=== PATIENT | male | born 1935 | race Caucasian/White ===

== ENCOUNTER → 2020-06-19 | Outpatient (REF) | payer MEDICARE, OTHER ==
[2020-07-23 10:50] LABS: INR 0.96; PARTIAL THROMBOPLASTIN TIME 31.7 SECONDS (25.0-38.4)
[2020-07-23 11:57] LABS: APPEARANCE, URINE HAZY (CLEAR); BACTERIA, URINE AUTO NEGATIVE (NEGATIVE); BILIRUBIN, URINE AUTO NEGATIVE (NEGATIVE); BLOOD, URINE BLOOD 2+ (NEGATIVE); COLOR, URINE YELLOW (YELLOW); GLUCOSE, URINE (UA) AUTO NEGATIVE (NEGATIVE); KETONE, URINE AUTO NEGATIVE (NEGATIVE); LEUKOCYTE ESTERASE, URINE AUTO TRACE (NEGATIVE); MUCUS, URINE SMALL (NEGATIVE); NITRITE, URINE AUTO NEGATIVE (NEGATIVE); PROTEIN, URINE AUTO NEGATIVE (NEGATIVE); RBC, URINE AUTO 21 /HPF (0-3); SPECIFIC GRAVITY URINE AUTO 1.013 (1.002-1.035); SQUAMOUS EPITHELIAL CELL UR AU 0 /HPF (0-6); UROBILINOGEN, URINE AUTO 0.2 mg/dL (0.0-2.0); WBC, URINE AUTO 15 /HPF (0-3)
== END ==
LOC: M LAB REF 12:49
PROVIDERS: ATTEND Internal Medicine
DX: Z01.818 Encounter for other preprocedural examination (principal); Z79.01 Long term (current) use of anticoagulants

== ENCOUNTER 2023-03-15 15:44 | Emergency (ER) | payer MEDICARE, OTHER ==
[~2023-03-15] VITALS: Ht 162.6 cm; Wt 65.5 kg
[2023-03-15] MEDS ORDERED: KP F1200 PO (15:57)
[2023-03-15] MEDS ORDERED: FINA5TAB2 (15:57)
[2023-03-15] MEDS ORDERED: [UNRECOGNIZED DRUG - CODE] (15:57)
[2023-03-15] MEDS ORDERED: OCUV1CAP4 PO (15:57)
[2023-03-15] MEDS ORDERED: ASPI81CH33 PO (15:57)
[2023-03-15 17:44] LABS: BASO # 0.1 10^3/uL (0.0-0.2); BASO % 0.6 % (0.0-1.0); EOS # 0.3 10^3/uL (0.0-0.5); EOS % 1.7 % (0.0-3.0); HEMATOCRIT 48.9 % (42.0-52.0); HEMOGLOBIN 16.3 g/dl (13.5-17.5); LYMPH # 2.7 10^3/uL (1.5-5.0); LYMPH % 16.3 % (24.0-44.0); MEAN CORPUSCULAR HEMOGLOBIN 32.9 pg (27.0-33.0); MEAN CORPUSCULAR HGB CONC 33.3 g/dl (32.0-36.5); MEAN CORPUSCULAR VOLUME 98.8 fl (80.0-96.0); MONO % 9.8 % (2.0-8.0); NEUTROPHILS # 11.7 10^3/uL (1.5-8.5); NEUTROPHILS % 71.2 % (36.0-66.0); PLATELET COUNT, AUTOMATED 181 10^3/uL (150-450); RED BLOOD COUNT 4.95 10^6/uL (4.30-6.10); WHITE BLOOD COUNT 16.4 10^3/uL (4.0-10.0)
[2023-03-15 17:47] LABS: MONO # 1.6 10^3/uL (0.0-0.8)
[2023-03-15 18:18] LABS: CALCIUM LEVEL 8.9 MG/DL (8.3-10.6); CREATININE FOR GFR 1.56 MG/DL (0.70-1.30); GLOMERULAR FILTRATION RATE 44.8 (>35)
[2023-03-15] MEDS ORDERED: cefTRIAXone SOD 1 GM in D5W MINI-BAG PLUS 50 ML IV ONE (18:40)
[2023-03-15 19:55] VITALS: BP 147/84
[2023-03-15] MEDS ORDERED: CIPR-249 PO (20:03)
== END 2023-03-15 20:15 | disposition home or self-care (01) ==
LOC: M ED 15:44
DX: N45.1 Epididymitis (principal); N39.0 Urinary tract infection, site not specified; N40.0 Benign prostatic hyperplasia without lower urinary tract symptoms; Z87.442 Personal history of urinary calculi; Z88.2 Allergy status to sulfonamides; Z79.899 Other long term (current) drug therapy; Z79.82 Long term (current) use of aspirin
CPT/HCPCS: 76870; 80048; 81001; 83605; 85025; 87040; 87088; 87186; 93976; 96365; 99284; J0696

== ENCOUNTER → 2023-03-15 | Outpatient (REF) | payer MEDICARE, OTHER ==
[~2023-03-15] MED LIST: ASPI81CH33 PO; CIPR-249 PO; FINA5TAB2; KP F1200 PO; OCUV1CAP4 PO; [UNRECOGNIZED DRUG - CODE]
== END ==
LOC: M LAB REF 16:18
PROVIDERS: ATTEND Internal Medicine
DX: N39.0 Urinary tract infection, site not specified (principal)

== ENCOUNTER → 2023-08-16 | Outpatient (REF) | payer MEDICARE, OTHER | LOC: M LAB REF 11:43 | PROVIDERS: ATTEND Internal Medicine | DX: R30.0 Dysuria (principal) ==